=== PATIENT | female | born 1975 | race Caucasian/White ===

== ENCOUNTER → 2021-06-13 | Day surgery (SDC) | payer OTHER ==
[~2021-06-13] VITALS: Ht 157.5 cm; Wt 74.8 kg
[~2021-06-13] MED LIST: KETOROLAC TROME10 MG PO; RYBELSUS14 MG PO; SYNTHROID PO; TAMOXIFEN CITRA20 MG PO; XYZAL5 MG PO
[2021-06-13 06:36] LABS: HCG (URINE) SCREEN NEGATIVE (NEGATIVE)
[2021-06-13 06:59] LABS: HCT 38.5 % (37.0-47.0); HGB 12.8 g/dl (12.5-16.0); MCH 31.1 pg (25.0-31.0); MCHC 33.2 g/dL (32.0-36.0); MCV 93.7 fL (78.0-100.0); MPV 9.7 fL (6.0-9.5); RBC 4.11 M/uL (4.20-5.40); RDW 14.1 % (11.5-14.0); WBC 11.8 K/uL (4.0-10.5)
[2021-06-13 07:11] LABS: ALBUMIN 3.7 g/dL (3.4-5.0); BILIRUBIN - TOTAL 0.4 mg/dL (0.2-1.0); BUN/CREAT RATIO (CALC) 16.5 RATIO; CREATININE 0.79 mg/dL (0.51-0.95); GLOBULIN (CALCULATION) 2.5 g/dL; POTASSIUM 3.9 mmol/L (3.5-5.1); TOTAL PROTEIN 6.2 g/dL (6.4-8.2)
== END | disposition home or self-care (01) ==
LOC: FAS 06:11
PROVIDERS: Specialist
DX: N87.9 Dysplasia of cervix uteri, unspecified (principal); N72 Inflammatory disease of cervix uteri; N83.202 Unspecified ovarian cyst, left side; N83.201 Unspecified ovarian cyst, right side; D25.1 Intramural leiomyoma of uterus; F17.200 Nicotine dependence, unspecified, uncomplicated; E66.9 Obesity, unspecified; Z85.3 Personal history of malignant neoplasm of breast; Z90.13 Acquired absence of bilateral breasts and nipples; Z72.89 Other problems related to lifestyle; Z88.1 Allergy status to other antibiotic agents; Z88.0 Allergy status to penicillin
CPT/HCPCS: 36415; 80053; 84703; 86850; 86900; 86901; J1100; J1170; J1580; J2250; J2405; J2704; J3010; J7120; J7121